=== PATIENT | female | born 1965 ===

== ENCOUNTER → 2016-06-18 | Outpatient (REF) | LOC: WSOH 11:45 | DX: Z02.1 Encounter for pre-employment examination (principal) ==

== ENCOUNTER → 2016-09-02 | Outpatient (REF) | LOC: WSOH 13:00 | DX: Z02.89 Encounter for other administrative examinations (principal) ==

== ENCOUNTER → 2016-11-06 | Outpatient (REF) | LOC: WSOH 16:45 | DX: Z02.89 Encounter for other administrative examinations (principal) ==